=== PATIENT | female | born 1980 | race Asian ===

== ENCOUNTER 2017-08-16 12:23 | Outpatient (CLI) | payer OTHER | END 2017-08-16 15:32 | disposition home or self-care (01) | LOC: LDOP 12:23 | PROVIDERS: ATTEND Obstetrics & Gynecology | DX: O26.859 Spotting complicating pregnancy, unspecified trimester (principal); Z3A.00 Weeks of gestation of pregnancy not specified | CPT/HCPCS: 59025; 99201; G0463 ==

== ENCOUNTER 2017-08-18 21:14 | Inpatient (IN) | payer OTHER ==
[~2017-08-18] VITALS: Ht 152.4 cm; Wt 67.3 kg
[2017-08-18] MEDS ORDERED: OXYTOCIN 30U/ 0.9% NaCL 500ML 500 ML IV ONE (21:37)
[2017-08-18] MEDS ORDERED: D5%-LACTATED RINGERS 1,000 ML IV SCH (21:37)
[2017-08-18] MEDS ORDERED: OXYTOCIN 30U/ 0.9% NaCL 500ML 500 ML IV PRN (21:37)
[2017-08-18] MEDS ORDERED: LACTATED RINGERS 1,000 ML IV SCH ×2 (21:37→23:06)
[2017-08-18] MEDS ORDERED: NEWBORN KIT ONE (21:39)
[2017-08-18] MEDS ORDERED: MISOPROSTOL 200 MCG TABLET ONE (21:39)
[2017-08-18] MEDS ORDERED: LIDOCAINE 1%, 20ML ONE (21:39)
[2017-08-18] MEDS ORDERED: OXYTOCIN 30U/ 0.9% NaCL 500ML 500 ML ONE (21:40)
[2017-08-18] MEDS ORDERED: TERBUTALINE 1 MG/ML, 1ML ONE (21:43)
[2017-08-18] MEDS ORDERED: PLEASE ENTER ALLERGIES MC SCH ×2 (22:00→23:30)
[2017-08-18] MEDS ORDERED: FENTANYL PF 100 MCG/2ML IVPush PRN (22:00)
[2017-08-18] MEDS ORDERED: ONDANSETRON 2MG/ML, 2ML IVPush PRN (22:00)
[2017-08-18] MEDS ORDERED: CALCIUM CARBONATE 500 MG TAB.CHEW PO PRN ×2 (22:00→23:30)
[2017-08-18] MEDS ORDERED: PLEASE ENTER HEIGHT AND WEIGHT MC SCH (22:00)
[2017-08-18 22:12] LABS: BASOPHILS # (AUTO) 0.06 x10^3/uL (0-0.1); BASOPHILS % (AUTO) 0 % (0-1); EOSINOPHILS # (AUTO) 0.17 x10^3/uL (0-0.4); EOSINOPHILS % (AUTO) 1 % (1-7); LYMPHOCYTES # (AUTO) 2.39 x10^3/uL (1-3.4); LYMPHOCYTES % (AUTO) 17 % (22-44); MD NO; MEAN CORPUSCULAR HEMOGLOBIN 29.3 pg (27.0-34.8); MEAN CORPUSCULAR VOLUME 88.6 fL (80-100); MONOCYTES # (AUTO) 1.26 x10^3/uL (0.2-0.8); MONOCYTES % (AUTO) 9 % (2-9); NEUTROPHILS # (AUTO) 9.91 x10^3/uL (1.8-6.8); NEUTROPHILS % (AUTO) 72 % (42-75); PLATELET COUNT 232 x10^3/uL (130-400); RED CELL DISTRIBUTION WIDTH 16.2 % (9.6-15.2)
[2017-08-18] MEDS ORDERED: OXYTOCIN 10 UNITS/ML, 1ML ONE (22:31)
[2017-08-18] MEDS ORDERED: CEFAZOLIN 1,000 MG ONE (22:31)
[2017-08-18] MEDS ORDERED: ONDANSETRON 2MG/ML, 2ML ONE (22:32)
[2017-08-18] MEDS ORDERED: FENTANYL PF 100 MCG/2ML ONE ×3 (22:32→23:57)
[2017-08-18] MEDS ORDERED: KETOROLAC 30 MG/1 ML ONE (22:32)
[2017-08-18] MEDS: OXYTOCIN 30U/ 0.9% NaCL 500ML 500 ML IV SCH (23:06)
[2017-08-18] MEDS: LACTATED RINGERS 1,000 ML IV SCH (23:06)
[2017-08-18] MEDS ORDERED: OXYcodone 5 MG/5 ML ORAL.SOL UDC ONE (23:19)
[2017-08-18] MEDS ORDERED: OXYcodone/APAP 5/325MG TABLET PO PRN (23:30)
[2017-08-18] MEDS ORDERED: ONDANSETRON 2MG/ML, 2ML IV PRN (23:30)
[2017-08-18] MEDS ORDERED: METOCLOPRAMIDE 5 MG/ML, 2ML IV PRN (23:30)
[2017-08-18] MEDS ORDERED: ACETAMINOPHEN 325 MG TABLET PO PRN ×2 (23:30)
[2017-08-18] MEDS ORDERED: morphine SULFATE 10 MG/ML, 1ML IVPush PRN (23:30)
[2017-08-18] MEDS ORDERED: MISOPROSTOL 200 MCG TABLET PR PRN (23:30)
[2017-08-18] MEDS ORDERED: MORPHINE SULFATE 4 MG/ML, 1ML ONE (23:37)
[2017-08-19] MEDS: FENTANYL PF 100 MCG/2ML IV PRN ×2 (00:01→00:29)
[2017-08-19] MEDS ORDERED: OXYcodone 5 MG/5 ML ORAL.SOL UDC PO PRN (00:30)
[2017-08-19] MEDS ORDERED: MORPHINE SULFATE 4 MG/ML, 1ML IVPush PRN (00:30)
[2017-08-19 01:00] VITALS: BP 120/73
[2017-08-19] MEDS: OXYcodone/APAP 5/325MG TABLET PO PRN ×2 (02:43→06:43)
[2017-08-19 04:20] VITALS: BP 120/77
[2017-08-19] MEDS: KETOROLAC 30 MG/1 ML IV PRN ×3 (05:05→17:16)
[2017-08-19 05:42] LABS: BASOPHILS # (AUTO) 0.01 x10^3/uL (0-0.1); BASOPHILS % (AUTO) 0 % (0-1); EOSINOPHILS # (AUTO) 0.02 x10^3/uL (0-0.4); EOSINOPHILS % (AUTO) 0 % (1-7); LYMPHOCYTES # (AUTO) 1.54 x10^3/uL (1-3.4); LYMPHOCYTES % (AUTO) 10 % (22-44); MD NO; MEAN CORPUSCULAR HEMOGLOBIN 29.8 pg (27.0-34.8); MEAN CORPUSCULAR HGB CONC 33.5 g/dL (32.4-35.8); MEAN CORPUSCULAR VOLUME 88.9 fL (80-100); MEAN PLATELET VOLUME 8.1 fL (7.4-10.4); MONOCYTES # (AUTO) 1.07 x10^3/uL (0.2-0.8); MONOCYTES % (AUTO) 7 % (2-9); NEUTROPHILS % (AUTO) 83 % (42-75); PLATELET COUNT 209 x10^3/uL (130-400); RED BLOOD COUNT 4.07 x10^6/uL (3.82-5.3); RED CELL DISTRIBUTION WIDTH 15.9 % (9.6-15.2)
[2017-08-19] MEDS: LACTATED RINGERS 1,000 ML IV SCH ×3 (07:06→19:23)
[2017-08-19 07:40] VITALS: BP 107/63
[2017-08-19] MEDS: OXYTOCIN 30U/ 0.9% NaCL 500ML 500 ML IV SCH ×2 (09:06→19:06)
[2017-08-19] MEDS: DOCUSATE 100 MG CAPSULE PO PRN (09:11)
[2017-08-19] MEDS: PRENATAL VIT/IRON/FA 1 EACH TABLET PO SCH (09:11)
[2017-08-19 12:00] VITALS: BP 104/67
[2017-08-19 16:00] VITALS: BP 108/69
[2017-08-19 19:30] VITALS: BP 110/71
[2017-08-20] MEDS: IBUPROFEN 600 MG TABLET PO PRN ×2 (02:27→09:27)
[2017-08-20] MEDS: OXYTOCIN 30U/ 0.9% NaCL 500ML 500 ML IV SCH (02:51)
[2017-08-20] MEDS: LACTATED RINGERS 1,000 ML IV SCH (08:57)
[2017-08-20 09:20] VITALS: BP 117/77
[2017-08-20] MEDS: PRENATAL VIT/IRON/FA 1 EACH TABLET PO SCH (09:27)
[2017-08-20] MEDS: DOCUSATE 100 MG CAPSULE PO PRN (09:27)
[2017-08-20] MEDS ORDERED: OXYC-302 PO (09:57)
[2017-08-20] MEDS ORDERED: IBUP-1222 PO (09:57)
== END 2017-08-20 12:35 | disposition home or self-care (01) | DRG 766 ==
LOC: LDOP 21:14 → LDIP 21:37 → 2NW 08-19 01:03
PROVIDERS: ADMIT Obstetrics & Gynecology; ATTEND Obstetrics & Gynecology
PROC: 10D00Z1 Extraction of Products of Conception, Low, Open Approach (ICD-10-PCS; principal; 2017-08-18)
DX: O76 Abnormality in fetal heart rate and rhythm complicating labor and delivery (principal); O69.81X0 Labor and delivery complicated by cord around neck, without compression, not applicable or unspecified; O77.0 Labor and delivery complicated by meconium in amniotic fluid; Z37.0 Single live birth; Z3A.40 40 weeks gestation of pregnancy
CPT/HCPCS: 36415; 85025; 86850; 86900; J0690; J1885; J2405; J3010; J2590; J7120